=== PATIENT | male | born 1960 | race Caucasian/White ===

== ENCOUNTER 2017-02-13 12:50 | Day surgery (SDC) | payer BC ==
[~2017-02-13] VITALS: Ht 170.2 cm; Wt 72.4 kg
[2017-02-13 14:56] VITALS: Ht 170.2 cm; Wt 72.4 kg
[2017-02-13] MEDS ORDERED: CLARITIN (15:01)
[2017-02-13] MEDS ORDERED: DYMISTA (15:01)
[2017-02-13] MEDS ORDERED: PROPOFOL 60 ML ONE (15:12)
[2017-02-13] MEDS ORDERED: LIDOCAINE 2% (SDV) 5 ML INJ ONE (15:13)
[2017-02-13 15:18] VITALS: BP 118/72; PULSE 60; RESP 24
[2017-02-13 16:20] VITALS: BP 111/74; PULSE 52; RESP 14
--- NOTE | 2017-02-13 21:19 | GILP ---
DATE OF PROCEDURE: 02/13/2017 DATE: 02/13/2017 NAME OF PROCEDURE: Esophagogastroduodenoscopy with biopsies. SURGEON: Citlali Akbar MD. HISTORY AND INDICATIONS: The patient is being evaluated for dyspepsia. PREMEDICATION: Monitored anesthesia care by anesthesiologist. INSTRUMENT USED: Olympus panendoscope. TECHNIQUE: After informed consent, with the patient/relatives understanding the procedure, its indic ations, potential risks, and complications, including but not limited to: allergic reaction, bleedin g, perforation or infection, and after all pertinent questions were answered to the patient's satisf action, the patient/relatives signed witnessed informed consent. Following this, premedication was administered slowly IV push under careful cardiovascular and respi ratory monitoring with pulse oximetry, automatic blood pressure and monitoring analyst. Once the sedative effect was achieved the patient was place in the left lateral decubitus, the panen doscope was introduced and advanced under visual control. Careful examination of the upper gastrointestinal tract, both on insertion as well as withdrawal of the instrument disclosed the following findings: ESOPHAGUS: The distal esophagus shows erythema and edema of the mucosa, which is mild. STOMACH: Upon entrance to the stomach, air was insufflated, the gastric nice distended normally. There is erythema and edema of the mucosa of a moderate degree. Biopsies were obtained to rule out H. pylori infection. PYLORUS: The pylorus appears patent and within normal limits, with no evidence of gastric outlet ob struction. DUODENUM: The duodenal mucosa was carefully examined in the duodenal bulb as well as the second por tion of the duodenum and appears unremarkable with no evidence of duodenitis, ulcer, or neoplasm. The instrument was then withdrawn, the patient tolerated the procedure well and was transfer out of the endoscopy suite awake, and in good condition to continue recovery under observation IMPRESSION: 1. Mild distal esophagitis. 2. Moderate gastritis, rule out Helicobacter pylori infection, biopsies obtained. PLAN: The patient will be treated with PPIs. Pathology will be reviewed as soon as available. Fur ther recommendation will depend on his clinical course as well as review of biopsies. Dictated By: CITLALI AKBAR MS/NTS Conf#: [id number] DID#: [id number] CC: CITLALI AKBAR;*EndCC*
--- NOTE | 2017-02-13 21:25 | GILP ---
DATE OF PROCEDURE: 02/13/2017 DATE: 02/13/2017 NAME OF PROCEDURE: Colonoscopy with polyp ablation. SURGEON: Kristin Akbar MD. PREMEDICATION: Monitored anesthesia care by anesthesiologist. INSTRUMENT USED: Olympus colonoscope. PREPARATION: Adequate. TECHNIQUE: After informed consent, with the patient/relatives understanding the procedure, its indic ations potential risks and complications, including but not limited to: allergic reaction, bleeding, perforation, infection, missed lesions, and after all pertinent questions were answered to the shelia ent's satisfaction, the patient/relatives signed the witnessed informed consent. Following this, premedication was administered slowly IV push by under careful cardiovascular and re spiratory monitoring with pulse oximetry, automatic blood pressure and athletic monitor. Once the sedati ve effect was achieved, the patient was placed in the left lateral decubitus position, digital recta l examination was performed. The colonoscope was then introduced and advanced under visual control throughout all segments of the colon including: the rectum, sigmoid, descending colon, splenic flexu re, transverse colon, hepatic flexure, ascending colon and finally reaching the cecum which was david rly identified by transillumination, finger indentation and the ileocecal valve. Careful examinatio n of the mucosa of the lower gastrointestinal tract both on insertion as well as withdrawal of the i nstrument disclosed the following findings: Rectal Examination: No evidence of perirectal disease, no masses. Colonic Mucosa: The colonic mucosa is remarkable for a 3 mm polyp in the rectum, which was complete ly ablated with biopsy forceps. A 4 mm polyp was noted in the transverse colon, was also ablated wi th biopsy forceps. The remainder of colonic mucosa unremarkable. The ileocecal valve was clearly i dentified and appears unremarkable. The instrument was withdrawn reexamining the mucosa in detail. No additional abnormalities are noted with exception of moderate sized internal hemorrhoids. The instrument was then withdrawn, the patient tolerated the procedure well and was transferred out of the Endoscopy Suite awake and in good condition to continue recovery under observation. IMPRESSION: 1. A 3 mm polyp, rectum ablated. 2. A 4 mm transverse colon, ablated. 3. Moderate sized internal hemorrhoids. PLAN: The patient will be continued on present regimen and annual Hemoccult stool testing is recomm ended. Surveillance colonoscopy in 5 years is recommended. Dictated By: KRISTIN AKBAR MS/LUIZA Conf#: [id number] DID#: [id number] CC: KRISTIN AKBAR;*End*
== END 2017-02-13 16:39 | disposition home or self-care (01) ==
LOC: GIL 12:50
PROVIDERS: ATTEND Internal Medicine Gastroenterology
DX: Z12.11 Encounter for screening for malignant neoplasm of colon (principal); D12.7 Benign neoplasm of rectosigmoid junction; D12.3 Benign neoplasm of transverse colon; K64.8 Other hemorrhoids; K20.8 Other esophagitis; K29.70 Gastritis, unspecified, without bleeding
CPT/HCPCS: 88305